=== PATIENT | female | born 1975 | race Caucasian/White ===

== ENCOUNTER 2017-05-08 12:27 | Emergency (ER) | payer OTHER ==
[~2017-05-08] VITALS: Ht 152.4 cm; Wt 45.4 kg
[2017-05-08] MEDS ORDERED: BACTRIM DS TAB1 EACH PO (14:53)
[2017-05-08] MEDS ORDERED: KEFLEX500 MG PO (14:53)
[2017-05-08 15:23] VITALS: BP 145/89
== END 2017-05-08 15:26 | disposition home or self-care (01) ==
LOC: ER 12:27
DX: L02.01 Cutaneous abscess of face (principal); F17.210 Nicotine dependence, cigarettes, uncomplicated